=== PATIENT | male | born 1940 | race Caucasian/White ===

== ENCOUNTER 2020-01-19 14:00 | Outpatient (RCR) | payer MEDICARE, OTHER, SELFPAY | END 2020-03-08 23:59 | disposition home or self-care (01) | LOC: ANHDMC 14:00 | DX: E11.65 Type 2 diabetes mellitus with hyperglycemia (principal); Z71.89 Other specified counseling | CPT/HCPCS: G0108 ==

== ENCOUNTER 2020-04-27 12:53 | Outpatient (RCR) | payer MEDICARE, OTHER, SELFPAY | END 2020-07-17 15:56 | disposition home or self-care (01) | LOC: ANHDMC 12:53 | DX: E11.65 Type 2 diabetes mellitus with hyperglycemia (principal) | CPT/HCPCS: 99199 ==